=== PATIENT | male | born 1990 | race Caucasian/White ===

== ENCOUNTER 2018-11-29 20:46 | Emergency (ER) | payer OTHER ==
[2018-11-29 20:55] VITALS: BP 140/91
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
--- NOTE | 2018-11-30 14:28 | UC ---
- EKG/XRAY/CT Xray Comments: missed possible lesion glenoid fossa- but c/w diagnosis Course/Dx - Diagnoses Provider Diagnoses: Recurrent dislocation, right shoulder Discharge - Sign-Out/Discharge Documenting (check all that apply): Post-Discharge Follow Up All imaging exams completed and their final reports reviewed: Yes - Discharge Plan Condition: Stable Disposition: HOME Patient Education Materials: Shoulder Dislocation (ED) Referrals: Lew Doherty MD [Medical Doctor] - As Soon As Possible Additional Instructions: I suspect you had a second dislocation of your right shoulder that occurred today sling ice advil or aleve I suggest you see an orthopedist you may have torn you labrum - Billing Disposition and Condition Condition: STABLE Disposition: Home
== END 2018-11-29 22:00 | disposition home or self-care (01) ==
LOC: UCEAST 20:46
DX: M24.411 Recurrent dislocation, right shoulder (principal); V18.0XXA Pedal cycle driver injured in noncollision transport accident in nontraffic accident, initial encounter; Y93.89 Activity, other specified; Y92.89 Other specified places as the place of occurrence of the external cause
CPT/HCPCS: 99201; G0463